=== PATIENT | male | born 1985 | race Two or more races ===

== ENCOUNTER 2019-10-25 12:33 | Day surgery (SDC) | payer OTHER ==
[~2019-10-25] VITALS: Ht 175.3 cm; Wt 105.7 kg
[2019-10-25] MEDS ORDERED: LACTATED RINGERS 1,000 ML IV SCH (13:01)
[2019-10-25] MEDS ORDERED: CHLORHEXIDINE 15 ML UDC ONE (13:05)
[2019-10-25 13:19] VITALS: BP 134/85
[2019-10-25] MEDS ORDERED: NONE PER PT (13:19)
[2019-10-25] MEDS ORDERED: CHLORHEXIDINE 15 ML UDC MM ONE (13:30)
[2019-10-25] MEDS ORDERED: MIDAZOLAM 1 MG/ML, 2ML ONE (13:57)
[2019-10-25] MEDS ORDERED: FENTANYL PF 250 MCG/5ML ONE (13:57)
[2019-10-25] MEDS ORDERED: ROCURONIUM 10MG/ML,5ML ONE (14:00)
[2019-10-25] MEDS ORDERED: CEFAZOLIN 1,000 MG ONE (14:00)
[2019-10-25] MEDS ORDERED: NEOSTIGMINE 1 MG/ML, 10ML ONE (14:00)
[2019-10-25] MEDS ORDERED: ONDANSETRON 2MG/ML, 2ML ONE ×2 (14:00→15:15)
[2019-10-25] MEDS ORDERED: DEXAMETHASONE 4 MG/ML, 1ML ONE (14:00)
[2019-10-25] MEDS ORDERED: SUCCINYLCHOLINE 20 MG/ML, 10ML ONE (14:00)
[2019-10-25] MEDS ORDERED: PROPOFOL 10 MG/ML, 20ML ONE (14:00)
[2019-10-25] MEDS ORDERED: GLYCOPYRROLATE 0.2MG/1ML, 5ML ONE (14:00)
[2019-10-25] MEDS ORDERED: OMNIPAQUE 350 MG/ML, 50 ML BOTTLE IV ONE (14:37)
[2019-10-25] MEDS ORDERED: OMNIPAQUE 350 MG/ML, 50 ML BOTTLE ONE (14:47)
[2019-10-25] MEDS ORDERED: NALOXONE 0.4 MG/ML, 1ML ONE (14:50)
[2019-10-25] MEDS ORDERED: ONDANSETRON 2MG/ML, 2ML IVPush PRN (15:00)
[2019-10-25] MEDS ORDERED: OXYcodone 5 MG/5 ML ORAL.SOL UDC PO PRN (15:00)
[2019-10-25] MEDS ORDERED: HYDROmorphone 1 MG/ML, 1ML INJ IVPush PRN (15:00)
[2019-10-25] MEDS ORDERED: FENTANYL PF 100 MCG/2ML IV PRN (15:00)
[2019-10-25] MEDS ORDERED: PROMETHAZINE 25 MG SUPP PR PRN (15:00)
[2019-10-25] MEDS ORDERED: ACETAMINOPHEN 325 MG TABLET PO PRN (15:00)
[2019-10-25] MEDS ORDERED: MEPERIDINE/PF 25MG/0.5ML IVPush PRN (15:00)
[2019-10-25] MEDS ORDERED: PROMETHAZINE 25 MG/ML, 1ML IVPush PRN (15:00)
[2019-10-25] MEDS ORDERED: LORazepam 2 MG/ML, 1ML IVPush PRN (15:00)
[2019-10-25] MEDS ORDERED: FENTANYL PF 100 MCG/2ML ONE (15:07)
== END 2019-10-25 16:30 | disposition home or self-care (01) ==
LOC: OUT 12:33
PROVIDERS: ATTEND Urology
DX: N20.2 Calculus of kidney with calculus of ureter (principal); Z11.59 Encounter for screening for other viral diseases; N13.5 Crossing vessel and stricture of ureter without hydronephrosis; E11.9 Type 2 diabetes mellitus without complications; Z79.891 Long term (current) use of opiate analgesic; Z79.899 Other long term (current) drug therapy; Z87.442 Personal history of urinary calculi
CPT/HCPCS: 52332; 52351; 74420; 87635; C1769; C2617; J0330; J0690; J1100; J2250; J2310; J2405; J2704; J2710; J3010; J7120; Q9967

== ENCOUNTER 2019-11-21 07:36 | Day surgery (SDC) | payer OTHER ==
[2019-11-20 12:33] LABS: MD NO
[2019-11-20 12:41] LABS: BASOPHILS # (AUTO) 0.02 x10^3/uL (0-0.1); BASOPHILS % (AUTO) 0 % (0-1); EOSINOPHILS # (AUTO) 0.29 x10^3/uL (0-0.4); EOSINOPHILS % (AUTO) 5 % (1-7); LYMPHOCYTES # (AUTO) 1.15 x10^3/uL (1-3.4); LYMPHOCYTES % (AUTO) 20 % (22-44); MEAN CORPUSCULAR HEMOGLOBIN 30.4 pg (27.5-34.5); MEAN CORPUSCULAR HGB CONC 33.1 g/dL (33.2-36.2); MONOCYTES # (AUTO) 0.48 x10^3/uL (0.2-0.8); MONOCYTES % (AUTO) 8 % (2-9); NEUTROPHILS # (AUTO) 3.78 x10^3/uL (1.8-6.8); NEUTROPHILS % (AUTO) 66 % (42-75); PLATELET COUNT 173 x10^3/uL (130-400); RED BLOOD COUNT 5.22 x10^6/uL (4.38-5.82); RED CELL DISTRIBUTION WIDTH 14.1 % (9.4-14.8)
[2019-11-20 14:13] LABS: ANION GAP 4 mmol/L (5-15); CALCIUM 9.3 mg/dL (8.5-10.1); CHLORIDE 108 mmol/L (98-107); CREATININE 1.09 mg/dL (0.7-1.3)
[~2019-11-21] VITALS: Ht 175.3 cm; Wt 108.0 kg
[~2019-11-21 07:36] MED LIST: NONE PER PT
[2019-11-21 08:17] VITALS: BP 130/83
[2019-11-21] MEDS ORDERED: LACTATED RINGERS 1,000 ML IV SCH (08:21)
[2019-11-21] MEDS ORDERED: CHLORHEXIDINE 15 ML UDC ONE (08:26)
[2019-11-21] MEDS ORDERED: FENTANYL PF 100 MCG/2ML ONE ×2 (08:29→11:28)
[2019-11-21] MEDS ORDERED: MIDAZOLAM 1 MG/ML, 2ML ONE (08:29)
[2019-11-21] MEDS ORDERED: PROPOFOL 10 MG/ML, 20ML ONE (08:30)
[2019-11-21] MEDS ORDERED: CHLORHEXIDINE 15 ML UDC MM ONE (08:30)
[2019-11-21] MEDS ORDERED: ROCURONIUM 10MG/ML,5ML ONE (09:55)
[2019-11-21] MEDS ORDERED: CEFAZOLIN 1,000 MG ONE (09:55)
[2019-11-21] MEDS ORDERED: ONDANSETRON 2MG/ML, 2ML IVPush PRN (10:00)
[2019-11-21] MEDS ORDERED: OXYcodone 5 MG/5 ML ORAL.SOL UDC PO PRN (10:00)
[2019-11-21] MEDS ORDERED: ACETAMINOPHEN 325 MG TABLET PO PRN (10:00)
[2019-11-21] MEDS ORDERED: DIAZEPAM 5 MG/ML, 2ML IVPush PRN (10:00)
[2019-11-21] MEDS ORDERED: HYDROmorphone 1 MG/ML, 1ML INJ IVPush PRN (10:00)
[2019-11-21] MEDS ORDERED: MEPERIDINE/PF 25MG/0.5ML IVPush PRN (10:00)
[2019-11-21] MEDS ORDERED: PROMETHAZINE 25 MG/ML, 1ML IVPush PRN (10:00)
[2019-11-21] MEDS ORDERED: DEXAMETHASONE 4 MG/ML, 1ML ONE ×2 (10:02)
[2019-11-21] MEDS ORDERED: ONDANSETRON 2MG/ML, 2ML ONE (10:02)
[2019-11-21] MEDS ORDERED: SUCCINYLCHOLINE 20 MG/ML, 10ML ONE (10:02)
[2019-11-21] MEDS ORDERED: OMNIPAQUE 350 MG/ML, 50 ML BOTTLE ONE (11:07)
[2019-11-21] MEDS ORDERED: OXYcodone 5 MG/5 ML ORAL.SOL UDC ONE (11:28)
[2019-11-21] MEDS ORDERED: ACETAMINOPHEN 650 MG/20.3 ML UDC ONE (11:28)
[2019-11-21] MEDS: FENTANYL PF 100 MCG/2ML IV PRN ×2 (11:30→11:38)
== END 2019-11-21 13:05 | disposition home or self-care (01) ==
LOC: OUT 07:36
PROVIDERS: ATTEND Urology
DX: N20.1 Calculus of ureter (principal); Z11.59 Encounter for screening for other viral diseases; Z72.89 Other problems related to lifestyle; Z80.52 Family history of malignant neoplasm of bladder
CPT/HCPCS: 36415; 52356; 74420; 80048; 82360; 85025; 87086; 87635; 88300; C1758; C1769; C2617; J0330; J0690; J1100; J2250; J2405; J2704; J3010; J7120; Q9967